=== PATIENT | male | born 1950 | race Caucasian/White ===

== ENCOUNTER 2019-01-29 13:37 | Emergency (ER) | payer OTHER, BC ==
[2019-01-29 15:39] LABS: ADD MAN DIFF? NO
[2019-01-29 15:42] LABS: BASOPHILS % 0.3 % (0.0-2.0); EOSINOPHILS # 0.1 10^3/ul (0.0-0.5); EOSINOPHILS % 1.2 % (0.0-7.0); HEMATOCRIT 44.5 % (42.0-52.0); HEMOGLOBIN 14.4 g/dl (14.0-18.0); LYMPHOCYTES # 2.4 10^3/ul (0.8-2.9); LYMPHOCYTES % 34.5 % (15.0-51.0); MEAN CORPUSCULAR HEMOGLOBIN 31.4 pg (29.0-33.0); MEAN CORPUSCULAR HGB CONC 32.4 g/dl (32.0-37.0); MEAN CORPUSCULAR VOLUME 96.9 fl (82.0-101.0); MEAN PLATELET VOLUME 11.4 fl (7.4-10.4); MONOCYTE # 0.2 10^3/ul (0.3-0.9); MONOCYTES % 2.9 % (0.0-11.0); NEUTROPHIL # 4.2 10^3/ul (1.6-7.5); PLATELET COUNT 208 10^3/UL (140-415); RED BLOOD COUNT 4.59 10^6/ul (4.70-6.10); RED CELL DISTRIBUTION WIDTH 16.5 % (11.5-14.5)
[2019-01-29 15:42] LABS: WHITE BLOOD COUNT 6.8 10^3/ul (4.8-10.8)
[2019-01-29] MEDS: FUROSEMIDE 40 MG INJ IV (15:47)
[2019-01-29 16:01] LABS: ALANINE AMINOTRANSFERASE 24 IU/L (13-69); ALBUMIN 3.5 g/dl (3.3-4.9); ALBUMIN/GLOBULIN RATIO 0.92; ALKALINE PHOSPHATASE 149 IU/L (42-121); ANION GAP 10 (5-13); ASPARTATE AMINO TRANSFERASE 24 IU/L (15-46); BILIRUBIN,INDIRECT 1.5 mg/dl (0-1.1); BILIRUBIN,TOTAL 1.5 mg/dl (0.2-1.3); BLOOD UREA NITROGEN 28 mg/dl (7-20); CALCIUM 9.2 mg/dl (8.4-10.2); CARBON DIOXIDE 30 mmol/L (21-31); CHLORIDE 99 mmol/L (97-110); CREATININE 0.95 mg/dl (0.61-1.24); Estimated GFR > 60 mL/min (>60); GLUCOSE 174 mg/dl (70-220); LIPASE 70 U/L (23-300); POTASSIUM 3.7 mmol/L (3.5-5.1); SODIUM 139 mmol/L (135-144); TOTAL PROTEIN 7.3 g/dl (6.1-8.1)
[2019-01-29 16:10] LABS: B-TYPE NATRIURETIC PEPTIDE 9630 PG/ML (0-125)
[2019-01-29 16:13] LABS: TROPONIN-I 0.095 ng/ml (0.000-0.120)
[2019-01-29] MEDS: ENALAPRILAT 1.25 MG INJ IV (17:20)
== END 2019-01-29 18:32 | disposition home or self-care (01) ==
LOC: E/R 13:37
DX: I50.41 Acute combined systolic (congestive) and diastolic (congestive) heart failure (principal); I10 Essential (primary) hypertension; R60.0 Localized edema; I25.10 Atherosclerotic heart disease of native coronary artery without angina pectoris; E66.9 Obesity, unspecified; Z68.24 Body mass index [BMI] 24.0-24.9, adult
CPT/HCPCS: 71045; 80053; 83690; 83880; 84484; 85025; 93005; 96374; 96375; 99285-25

== ENCOUNTER 2019-02-07 07:35 | Inpatient (IN) | payer OTHER ==
[2019-02-07 08:38] LABS: ADD MAN DIFF? NO
[2019-02-07 08:39] LABS: BASOPHILS % 0.4 % (0.0-2.0); EOSINOPHILS % 0.5 % (0.0-7.0); HEMATOCRIT 41.6 % (42.0-52.0); HEMOGLOBIN 13.7 g/dl (14.0-18.0); LYMPHOCYTES # 1.8 10^3/ul (0.8-2.9); MEAN CORPUSCULAR HEMOGLOBIN 31.9 pg (29.0-33.0); MEAN CORPUSCULAR HGB CONC 32.9 g/dl (32.0-37.0); MEAN CORPUSCULAR VOLUME 96.7 fl (82.0-101.0); MEAN PLATELET VOLUME 11.7 fl (7.4-10.4); MONOCYTE # 0.2 10^3/ul (0.3-0.9); MONOCYTES % 3.7 % (0.0-11.0); NEUTROPHIL # 3.6 10^3/ul (1.6-7.5); POSITIVE DIFF @See below; RED CELL DISTRIBUTION WIDTH 16.9 % (11.5-14.5)
[2019-02-07 08:39] LABS: WHITE BLOOD COUNT 5.7 10^3/ul (4.8-10.8)
[2019-02-07 08:40] LABS: PLATELET COUNT 140 10^3/UL (140-415)
[2019-02-07 08:56] LABS: ANION GAP 7 (5-13); BLOOD UREA NITROGEN 29 mg/dl (7-20); CALCIUM 8.6 mg/dl (8.4-10.2); CARBON DIOXIDE 28 mmol/L (21-31); CHLORIDE 100 mmol/L (97-110); CREATININE 0.87 mg/dl (0.61-1.24); Estimated GFR > 60 mL/min (>60); GLUCOSE 198 mg/dl (70-220); SODIUM 135 mmol/L (135-144)
[2019-02-07 09:00] LABS: POTASSIUM 3.7 mmol/L (3.5-5.1)
[2019-02-07 09:08] LABS: B-TYPE NATRIURETIC PEPTIDE 7230 PG/ML (0-125); TROPONIN-I 0.048 ng/ml (0.000-0.120)
[2019-02-07] MEDS ORDERED: ONDANSETRON 4 MG INJ IV (10:00)
[2019-02-07] MEDS ORDERED: ACETAMINOPHEN 325 MG TAB PO (10:00)
[2019-02-07] MEDS: BUMETANIDE 1 MG INJ IV (10:02)
[2019-02-07 14:19] LABS: CREATINE KINASE 49 IU/L (23-200)
[2019-02-07 14:32] LABS: CK INDEX 1.7; CK-MB 0.82 ng/ml (0.0-2.4); TROPONIN-I 0.038 ng/ml (0.000-0.120)
[2019-02-07] MEDS ORDERED: ZOLPIDEM 5 MG TAB PO (16:30)
[2019-02-07] MEDS ORDERED: LORAZEPAM 0.5 MG TAB PO (16:30)
[2019-02-07] MEDS: BUMETANIDE 3 MG in DEXTROSE 5% 18 ML IV (17:43)
[2019-02-07] MEDS ORDERED: hydrALAzine 20 MG INJ IV (19:30)
[2019-02-07 19:53] LABS: AMPHETAMINE/METHAMPHETAMINE Negative (NEGATIVE); BARBITURATES Negative (NEGATIVE); BENZODIAZEPINES Negative (NEGATIVE); CANNABINOIDS Negative (NEGATIVE); COCAINE Negative (NEGATIVE); OPIATES Negative (NEGATIVE)
[2019-02-07 20:33] LABS: CREATINE KINASE 39 IU/L (23-200)
[2019-02-07 20:46] LABS: CK INDEX 2.4; CK-MB 0.93 ng/ml (0.0-2.4); TROPONIN-I 0.037 ng/ml (0.000-0.120)
[2019-02-07] MEDS ORDERED: METOPROLOL (XL) 25 MG TAB PO (21:00)
[2019-02-07] MEDS ORDERED: BENAZEPRIL 20 MG TAB PO (21:00)
[2019-02-07] MEDS ORDERED: DOCUSATE SODIUM 100 MG CAP PO (21:00)
[2019-02-08] MEDS ORDERED: FAMOTIDINE 20 MG TAB PO (09:00)
[2019-02-08] MEDS ORDERED: SPIRONOLACTONE 25 MG TAB PO (09:00)
[2019-02-08] MEDS ORDERED: ASPIRIN 81 MG TAB PO (09:00)
== END 2019-02-07 21:05 | disposition left against medical advice (07) | DRG 292 ==
LOC: E/R 07:35 → 6WM 09:33
DX: I11.0 Hypertensive heart disease with heart failure (principal); I69.951 Hemiplegia and hemiparesis following unspecified cerebrovascular disease affecting right dominant side; E78.5 Hyperlipidemia, unspecified; I25.10 Atherosclerotic heart disease of native coronary artery without angina pectoris; I50.43 Acute on chronic combined systolic (congestive) and diastolic (congestive) heart failure; Z79.82 Long term (current) use of aspirin
CPT/HCPCS: 36415; 71045; 80048; 80307; 82550; 82553; 83880; 84484; 85025; 93005; 93971; 99285-25